=== PATIENT | male | born 1945 | race African-American/Black ===

== ENCOUNTER 2023-05-31 13:34 | Emergency (ER) | payer OTHER, SELFPAY ==
[2023-05-31] VITALS (16 sets, daily range): BP systolic 156–205; BP diastolic 93–138; PULSE 55–66; RESP 20; TEMP 36.4; O2SAT 94–100; BMI 27.4
--- NOTE | 2023-05-31 14:09 | ED_ITS ---
HPI - Back Pain/Injury General Chief Complaint: Back Injury/Pain Stated Complaint: back pain,virtigo Time Seen by Provider: 05/31/23 13:55 History of Present Illness HPI Narrative: This 77-year-old [place]ian man comes in with his nephew. 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 He does not report any injury event or strenuous activity to trigger this. He states that the pain is severe and it is radiating down his left leg. [facility] and had [facility]-ray a couple days ago. The results of the x-ray were negative. Related Data Home Medications Medication Instructions Recorded Confirmed acetaminophen 500 mg tablet (Pain 1,000 mg PO Q6H PRN 05/31/23 05/31/23 Reliever Extra Strength (acetaminophen)) amlodipine 10 mg tablet 10 mg PO DAILY 05/31/23 05/31/23 cyclobenzaprine 10 mg tablet 10 mg PO BID 05/31/23 05/31/23 esomeprazole magnesium 40 mg 40 mg PO DAILY 05/31/23 05/31/23 capsule,delayed release gabapentin 300 mg capsule 300 mg PO BID 05/31/23 05/31/23 tramadol 50 mg tablet 50 mg PO BID 05/31/23 05/31/23 Previous Rx's Medication Instructions Recorded cyclobenzaprine 10 mg tablet 10 mg PO TID #15 tabs 05/31/23 hydrocodone 5 mg-acetaminophen 325 1 tab PO Q4-6H PRN pain #15 tabs 05/31/23 mg tablet ketorolac 10 mg tablet 10 mg PO Q8H 5 days #15 tabs 05/31/23 metoprolol tartrate 25 mg tablet 25 mg PO BID #60 tabs 05/31/23 Allergies Allergy/AdvReac Type Severity Reaction Status Date / Time No Known Drug Allergies Allergy Verified 05/31/23 13:54 Review of Systems Status of ROS: Reports: 10 or more systems reviewed and unremarkable except as noted in History and below Narrative: Constitutional: No fevers, no weight gain or loss. Eyes: No discharge. No vision changes. HENT: No congestion, no sore throat, no ear pain. Cardiovascular: No chest pain, no palpitations. Respiratory: No shortness of breath, no wheezes, no cough. Gastrointestinal: No abdominal pain, no vomiting, no diarrhea. Genitourinary: No dysuria, no hematuria. Musculoskeletal: Normal range of motion. Low back pain on the left side radiating down the left leg. Skin: No rashes, no pruritis. Neurological: No weakness, sensory change, speech change. He reports some vertigo symptoms. Endo/Heme/Allergies: No bruising or bleeding. No polydipsia. Pysch: no suicidality, no anxiety, no insomnia. All other systems reviewed and are negative. Exam Narrative: Exam Narrative: Constitutional: Well-developed, well-nourished, no acute distress. HEENT: Normocephalic, atraumatic. Neck: Normal range of motion. Nontender. Supple. Heart: Regular. No murmurs. Normal rate. Intact distal pulses. Lungs: Clear to auscultation. No chest discomfort. No wheezes, rhonchi, or rales. Abdomen: Normal bowel sounds. Nontender. No rebound tenderness. Genitalia: Deferred. Back: No midline tenderness. Pain in the left side of his back radiating down into the left buttock and into the lower leg. Extremities: Normal range of motion. No injury. Skin: Intact. No rash. Warm. No erythema or pallor. Neurologic: No altered sensation. No weakness. Alert and oriented. Psychiatric: No suicidality. No anxiety or depression. No insomnia. Nursing notes and vitals signs are reviewed. Const: Vital Signs, click to edit/add: Vital Signs - 24 hr 05/31/23 13:47 Temperature 97.5 F L Pulse Rate [Left P ulse Oximeter] 59 L Respiratory Rate 20 Blood Pressure [Le ft Upper Arm] 205/95 H Pulse Oximetry 98 Oxygen Delivery Me thod Room Air Course Vital Signs Vital signs: Initial Vital Signs Temperature 97.5 F L 05/31/23 13:47 Temperature Source Temporal Artery Scan 05/31/23 13:47 Pulse Rate 59 L 05/31/23 13:47 Pulse Rhythm Regular 05/31/23 13:47 Pulse Strength 3+ Normal 05/31/23 13:47 Respiratory Rate 20 05/31/23 13:47 Blood Pressure 205/95 H 05/31/23 13:47 Blood Pressure Mean 131 H 05/31/23 13:47 Blood Pressure Position Sitting 05/31/23 13:47 Pulse Oximetry 98 05/31/23 13:47 Oxygen Delivery Method Room Air 05/31/23 13:47 Vital Signs Temperature 97.5 F L 05/31/23 13:47 Pulse Rate 59 L 05/31/23 13:47 Respiratory Rate 20 05/31/23 13:47 Blood Pressure 205/95 H 05/31/23 13:47 Pulse Oximetry 98 05/31/23 13:47 Oxygen Delivery Method Room Air 05/31/23 13:47 Temperature 97.5 F L 05/31/23 13:47 Pulse Rate 59 L 05/31/23 13:47 Respiratory Rate 20 05/31/23 13:47 Blood Pressure 205/95 H 05/31/23 13:47 Pulse Oximetry 98 05/31/23 13:47 Oxygen Delivery Method Room Air 05/31/23 13:47 MDM - Back Pain/Injury MDM Narrative Medical decision making narrative: This patient has symptoms typical of a lumbar radiculopathy. There was no injury event or strenuous activity that triggered these symptoms. He did have x-ray imaging done elsewhere a couple days ago with normal results. There is no indication for imaging at this time today since he did not have any significant mechanism to bring about these symptoms. The patient received intra muscular injection of morphine 10 mg. Prescriptions are provided for Toradol, Maybee, Flexeril, and Medrol Dosepak. He is advised to follow-up with the spine clinic for further evaluation and treatment. Discharge Plan Discharge Clinical Impression: Lumbar radiculopathy Patient Disposition: Home w/ Parent or Adult Condition: Stable Additional Instructions: Take medication as prescribed and needed for pain. Follow up with [facility] for further evaluation and treatment. Call [phone] for appointment. Return if worsening. Prescriptions: New cyclobenzaprine 10 mg tablet 10 mg PO TID Qty: 15 0RF hydrocodone-acetaminophen 5-325 mg tablet 1 tab PO Q4-6H PRN (Reason: pain) Qty: 15 0RF ketorolac 10 mg tablet 10 mg PO Q8H 5 Days Qty: 15 0RF metoprolol tartrate 25 mg tablet 25 mg PO BID Qty: 60 2RF No Action cyclobenzaprine 10 mg tablet 10 mg PO BID tramadol 50 mg tablet 50 mg PO BID acetaminophen [Pain Reliever ES(acetaminophn)] 500 mg tablet 1,000 mg PO Q6H PRN amlodipine 10 mg tablet 10 mg PO DAILY esomeprazole magnesium 40 mg capsule,delayed release(DR/EC) 40 mg PO DAILY gabapentin 300 mg capsule 300 mg PO BID Stand Alone Forms: [employer] Info Instructions
[2023-05-31] MEDS: MORPHINE 10 MG/ML inj IM (14:30)
== END 2023-05-31 16:10 | disposition home or self-care (01) ==
PROVIDERS: Emergency Provider Family Medicine
DX: M54.16 Radiculopathy, lumbar region (principal)
CPT/HCPCS: 96372; 99284; J2270